=== PATIENT | female | born 1980 | race Caucasian/White ===

== ENCOUNTER 2020-11-21 13:13 | Observation (INO) | payer OTHER, SELFPAY ==
[2020-11-21] MEDS ORDERED: GoLYTELY 4,000 ml Bottle PO SCH (15:00)
[2020-11-21 17:58] LABS: Hemoglobin 13.5 g/dL (12.0-16.0); Red Blood Cell (RBC) Count 4.25 mill/uL (4.20-5.40)
[2020-11-21 17:59] LABS: #Neutrophils 5.3 thou/uL (1.40-6.50); %Basophils 0.8 % (0.0-1.0); %Eosinophils 2.5 % (0.0-10.0); %Lymphocytes 25.6 % (21.0-51.0); %Neutrophils 67.2 % (42.0-75.0); Mean Corpuscular HGB CONC 33.8 g/dL (32.0-36.0); Mean Corpuscular Hemoglobin 31.7 pg (27.0-31.0); Mean Corpuscular Volume 93.7 fL (78.0-98.0); Mean Platelet Volume 8.4 fL (7.4-10.4); Platelet Count 220 thou/uL (130-400); RBC Distribution Width 11.3 % (11.5-14.5)
[2020-11-21 18:00] LABS: #Basophils 0.1 thou/uL (0.0-0.2); #Eosinphils 0.2 thou/uL (0.0-0.7); #Monocytes 0.3 thou/uL (0.11-0.59)
[2020-11-21 18:59] LABS: Anion Gap 14 mmol/L (10-20); BUN (Urea Nitrogen) 7 mg/dL (7.0-18.7); Calc. Creatinine Clearance 0 mL/min (70-130); Carbon Dioxide 25 mmol/L (22-29); Chloride 103 mmol/L (98-107); Potassium 4.3 mmol/L (3.5-5.1); Sodium 138 mmol/L (136-145)
[2020-11-21 19:00] LABS: AST (SGOT) 17 U/L (5-34); Albumin 4.3 g/dL (3.5-5.0); Alkaline Phosphatase 79 U/L (40-110); Bilirubin, Total 0.3 mg/dL (0.2-1.2); Calcium 9.7 mg/dL (7.8-10.44); Globulin 2.2 g/dL (2.4-3.5); Glucose 96 mg/dL (70-105); Protein, Total 6.5 g/dL (6.0-8.3)
[2020-11-21 19:01] LABS: ALT (SGPT) 23 U/L (8-55)
[2020-11-21] MEDS ORDERED: Fentanyl 100 MCG/2 ML VIAL SLOW IVP SCH (20:30)
[2020-11-21] MEDS ORDERED: Lidocaine 1% PF 5 ML VIAL ONE (20:41)
[2020-11-21] MEDS ORDERED: Succinylcholine 200 MG/10 ml SYRINGE FS ONE (20:41)
[2020-11-21] MEDS ORDERED: PROPOFOL 200 MG/20 ML VIAL ONE (20:41)
[2020-11-21] MEDS ORDERED: Ondansetron PF 4 MG/2 ML Vial ONE (20:41)
[2020-11-21] MEDS ORDERED: Dexamethasone 20 MG/5 ML VIAL ONE (20:41)
[2020-11-21] MEDS ORDERED: EPINEPHrine 1 MG/10 ML Abboject SYRINGE ONE (20:55)
[2020-11-21] MEDS ORDERED: Promethazine HCl 25 MG/ML VIAL IVPB PRN (21:14)
[2020-11-21] MEDS ORDERED: Meperidine HCl/PF 25 MG/ML VIAL SLOW IVP PRN (21:14)
[2020-11-21] MEDS ORDERED: Ondansetron HCl/PF 4 MG/2 ML Vial IVP PRN (21:14)
[2020-11-22 06:46] VITALS: BMI 33.6
[2020-11-22 09:35] VITALS: BP 103/65; TEMP 98.7
[2020-11-22 09:35] LABS: #Lymphocytes 1.1 thou/uL (1.20-3.40); #Monocytes 0.2 thou/uL (0.11-0.59); #Neutrophils 9.5 thou/uL (1.40-6.50); %Basophils 0.3 % (0.0-1.0); %Eosinophils 0.1 % (0.0-10.0); %Lymphocytes 10.5 % (21.0-51.0); %Monocytes 1.5 % (0.0-10.0); %Neutrophils 87.6 % (42.0-75.0); Hemoglobin 13.8 g/dL (12.0-16.0); Mean Corpuscular Hemoglobin 32.1 pg (27.0-31.0); Mean Corpuscular Volume 94.4 fL (78.0-98.0); Mean Platelet Volume 8.9 fL (7.4-10.4); Platelet Count 221 thou/uL (130-400); RBC Distribution Width 11.5 % (11.5-14.5); Red Blood Cell (RBC) Count 4.29 mill/uL (4.20-5.40); White Blood Cell (WBC) Count 10.9 thou/uL (4.8-10.8)
[2020-11-22 18:38] LABS: SARS-CoV-2 NAA Rapid Test Not Detected (NotDetected)
== END 2020-11-22 11:02 | disposition home or self-care (01) ==
LOC: ERS 13:13 → SURG B 21:50 → INTOOBSV 21:50
PROVIDERS: ADMIT Internal Medicine Gastroenterology; ATTEND Internal Medicine Gastroenterology
PROC: 0W3P8ZZ Control Bleeding in Gastrointestinal Tract, Via Natural or Artificial Opening Endoscopic (ICD-10-PCS; principal; 2020-11-21)
DX: K91.840 Postprocedural hemorrhage of a digestive system organ or structure following a digestive system procedure (principal); K63.3 Ulcer of intestine; E66.3 Overweight; Z68.33 Body mass index [BMI] 33.0-33.9, adult; Z86.73 Personal history of transient ischemic attack (TIA), and cerebral infarction without residual deficits; Z79.82 Long term (current) use of aspirin; Z79.899 Other long term (current) drug therapy; Z20.822 Contact with and (suspected) exposure to COVID-19
CPT/HCPCS: 36415; 80053; 85025; 86850; 86900; 86901; J0171; J1100; J2405; J2704; J3010; U0002

== ENCOUNTER 2020-11-23 10:29 | Observation (INO) | payer BC, SELFPAY ==
[2020-11-23 11:34] VITALS: BMI 34.7
[2020-11-23] MEDS ORDERED: Ondansetron PF 4 MG/2 ML Vial IVP PRN (12:11)
[2020-11-23] MEDS ORDERED: GoLYTELY 4,000 ml Bottle PO SCH ×2 (12:15→17:00)
[2020-11-23] MEDS ORDERED: Sodium Chloride 0.9% 1,000 ML IV SCH (12:15)
[2020-11-23 12:40] LABS: #Eosinphils 0.2 thou/uL (0.0-0.7); #Lymphocytes 3.4 thou/uL (1.20-3.40); #Monocytes 0.5 thou/uL (0.11-0.59); #Neutrophils 5.2 thou/uL (1.40-6.50); %Basophils 0.5 % (0.0-1.0); %Eosinophils 1.8 % (0.0-10.0); %Lymphocytes 36.4 % (21.0-51.0); %Monocytes 4.8 % (0.0-10.0); %Neutrophils 56.5 % (42.0-75.0); Hemoglobin 12.4 g/dL (12.0-16.0); Mean Corpuscular HGB CONC 34.8 g/dL (32.0-36.0); Mean Corpuscular Hemoglobin 32.6 pg (27.0-31.0); Mean Corpuscular Volume 93.8 fL (78.0-98.0); Mean Platelet Volume 8.7 fL (7.4-10.4); Platelet Count 197 thou/uL (130-400); RBC Distribution Width 11.6 % (11.5-14.5); White Blood Cell (WBC) Count 9.3 thou/uL (4.8-10.8)
[2020-11-23] MEDS ORDERED: PROPOFOL 200 MG/20 ML VIAL ONE (17:49)
[2020-11-23] MEDS ORDERED: Lidocaine 1% PF 5 ML VIAL ONE (17:49)
[2020-11-23 22:46] VITALS: BP 109/71; TEMP 98.1
== END 2020-11-23 20:08 | disposition home or self-care (01) ==
LOC: T4-B 10:48
PROVIDERS: ADMIT Internal Medicine Gastroenterology; ATTEND Internal Medicine Gastroenterology
PROC: 0W3P8ZZ Control Bleeding in Gastrointestinal Tract, Via Natural or Artificial Opening Endoscopic (ICD-10-PCS; principal; 2020-11-23)
DX: K91.840 Postprocedural hemorrhage of a digestive system organ or structure following a digestive system procedure (principal); K63.3 Ulcer of intestine; Z86.73 Personal history of transient ischemic attack (TIA), and cerebral infarction without residual deficits; Z79.82 Long term (current) use of aspirin
CPT/HCPCS: 36415; 85025; J2704; J7050

== ENCOUNTER 2024-10-02 16:41 | Emergency (ER) | payer OTHER ==
[~2024-10-02 16:41] MED LIST: Iopamidol-370 76% 500 ML MDV (1 ML CHARGE) ONE
[2024-10-02] MEDS ORDERED: Ketorolac Tromethamine 30 MG (1 mL) VIAL ONE (17:07)
[2024-10-02 17:17] LABS: #Basophils 0.04 10x3/uL (0.0-0.2); #Eosinophils 0.07 10x3/uL (0.0-0.7); #Monocytes 0.37 10x3/uL (0.11-0.59); #Neutrophils 4.47 10x3/uL (1.40-6.50); %Basophils 0.6 % (0.0-1.0); %Eosinophils 1.0 % (0.0-10.0); %Lymphocytes 31.3 % (21.0-51.0); %Monocytes 5.1 % (0.0-10.0); %Neutrophils 61.7 % (42.0-75.0); Hematocrit 36.2 % (36.0-47.0); Hemoglobin 12.0 g/dL (12.0-16.0); Mean Corpuscular Hemoglobin 29.9 pg (27.0-31.0); Mean Corpuscular Volume 90.0 fL (78.0-98.0); Platelet Count 186 10x3/uL (130-400); Red Blood Cell (RBC) Count 4.02 mill/uL (4.20-5.40); White Blood Cell (WBC) Count 7.23 10x3/uL (4.8-10.8)
[2024-10-02 17:28] LABS: BHCG - Serum Negative (NEGATIVE); Pregs Control Background? CLEAR/WHITE (CLR/WHITE); Pregs Control Bar Appear? YES (CONTROL BAR)
[2024-10-02 17:33] LABS: INR-International Normal Ratio 1.0; PTT 32.1 sec (22.9-36.1); Prothrombin Time 12.9 sec (12.0-14.7)
[2024-10-02 17:36] LABS: Bacteria/HPF None Seen HPF (None Seen); CAUTI Indications for Culture Fever or rigors; Glucose, Urine (Dipstick) Normal (Negative); Leukocyte Negative Leu/uL (Negative); Protein, Urine (Dipstick) Negative (Neg-Trace); RBC/HPF 0-3 HPF (0-3); Specific Gravity, Urine 1.008 (1.002-1.036); WBC/HPF 0-3 HPF (0-3)
[2024-10-02 17:38] LABS: Urine Culture Reflex No No
[2024-10-02 17:40] LABS: Troponin I Less than 0.010 ng/mL (< 0.028)
[2024-10-02 17:41] LABS: ALT (SGPT) 34 U/L (Less than 34); AST (SGOT) 20 U/L (11-34); Albumin 4.1 g/dL (3.1-4.5); Alkaline Phosphatase 85 U/L (40-110); Anion Gap 15 mmol/L (10-20); BUN (Urea Nitrogen) 8 mg/dL (7.0-18.7); Bilirubin, Total 0.2 mg/dL (0.3-1.2); CK (CPK) 52 U/L (29-168); Calc. Creatinine Clearance 0 mL/min (70-130); Calcium 9.0 mg/dL (7.8-10.44); Carbon Dioxide 20 mmol/L (22-29); Chloride 106 mmol/L (98-107); Globulin 2.7 g/dL (2.4-3.5); Glucose 173 mg/dL (70-105); Magnesium 1.8 mg/dL (1.6-2.6); Potassium 3.9 mmol/L (3.5-5.1); Sodium 137 mmol/L (136-145)
[2024-10-02 17:55] LABS: D-Dimer Test Less than 0.27 mcg/mL (0.27-0.43)
== END 2024-10-02 19:17 | disposition home or self-care (01) ==
LOC: ERS 16:41
DX: R07.9 Chest pain, unspecified (principal); F17.210 Nicotine dependence, cigarettes, uncomplicated; Z86.73 Personal history of transient ischemic attack (TIA), and cerebral infarction without residual deficits
CPT/HCPCS: 36415; 71045; 71275; 80053; 81001; 82550; 83605; 83735; 83880; 84443; 84484; 84703; 85025; 85379; 85610; 85730; 93005; 96374; J1885; Q9967